=== PATIENT | male | born 1980 | race Caucasian/White ===

== ENCOUNTER 2016-07-25 13:54 | Emergency (ER) | payer OTHER ==
[~2016-07-25] VITALS: Wt 93.0 kg
[~2016-07-25 13:54] MED LIST: AMOXICILLIN500 M2 PO; AMOXICILLIN500 MG PO; ANTIPYRINE AND15 ML OT; BACTRIM DS 8001 TA1 PO; BENADRYL25 M2 PO; CEPHALEXIN500 M1 PO; DEBROX15 ML OT; DOXYCYCLINE100 MG PO; EXCEDRIN 250 MG1 TA1 PO; FLOMAX0.4 MG PO; HYDROCODONE BIT1 T11 PO; KEFLEX500 MG PO; MOTRIN800 MG PO; Motrin,Rufen800 MG PO; NAPROSYN500 MG PO; PERCOCET 325 MG1 TA7 PO; PHENERGAN W/ DE30 ML PO; PREDNICOT10 MG PO; PREDNISONE20 M1 PO; PROAIR HFA0.09 MG/AC INH; ZOFRAN ODT4 MG SL; ZYRTEC10 MG PO
[2016-07-25 14:29] LABS: BASO % 0.4 % (0.0-1.0); EOS # 0.1 10*3/uL (0.0-0.4); EOS % 1.3 % (1.0-4.0); HEMATOCRIT 42.2 % (42.0-52.0); HEMOGLOBIN 14.3 g/dl (14.0-18.0); LYMPH # 0.9 10*3/uL (1.3-4.4); MEAN CELL VOLUME 85.9 fl (80.0-94.0); MEAN CORPUSCULAR HGB 29.1 pg (27.0-31.0); MEAN CORPUSCULAR HGB CONC 33.9 g/dl (33.0-37.0); MEAN PLATELET VOLUME 9.2 fl (9.6-12.3); MONO # 0.6 10*3/uL (0.1-1.0); MONO % 12.3 % (3.0-9.0); NEUT # 3.2 10*3/uL (2.3-7.9); NEUT % 66.6 % (47.0-73.0); PLATELET COUNT AUTOMATED 176 10*3/uL (130-400); RED BLOOD COUNT 4.91 10*6/uL (4.50-5.90); WHITE BLOOD COUNT 4.8 10*3/uL (4.8-10.8)
[2016-07-25 14:45] LABS: ALBUMIN 3.7 gm/dl (3.1-4.5); ALKALINE PHOSPHATASE 81 U/L (45-117); BILIRUBIN, TOTAL 0.3 mg/dl (0.2-1.0); BUN 8 mg/dl (7-24); C-REACTIVE PROTEIN 2.42 MG/DL (0-0.3); CARBON DIOXIDE 26 mmol/L (21-32); CHLORIDE 105 mmol/L (98-107); EST GLOM FILT AFRICAN AMERICAN > 60 ml/min; GLUCOSE 76 mg/dL (65-99); POTASSIUM 3.8 mmol/L (3.5-5.1); SGOT/AST 21 IU/L (3-35); SGPT/ALT 32 U/L (12-78); SODIUM 141 mmol/L (136-145); TOTAL PROTEIN 7.8 gm/dL (6.4-8.2)
[2016-07-25] MEDS ORDERED: ZOFRAN ODT4 MG SL (17:09)
[2016-07-25] MEDS ORDERED: Motrin,Rufen800 MG PO (17:09)
== END 2016-07-25 17:19 | disposition home or self-care (01) ==
LOC: ED 13:54
PROVIDERS: Physician Assistant
DX: K52.9 Noninfective gastroenteritis and colitis, unspecified (principal); M54.5 Low back pain; F17.200 Nicotine dependence, unspecified, uncomplicated

== ENCOUNTER 2016-07-30 17:15 | Emergency (ER) | payer OTHER ==
[~2016-07-30] VITALS: Wt 93.0 kg
[2016-07-30 17:55] LABS: MEAN CELL VOLUME 85.4 fl (80.0-94.0); MEAN CORPUSCULAR HGB 29.2 pg (27.0-31.0); MEAN CORPUSCULAR HGB CONC 34.1 g/dl (33.0-37.0); MEAN PLATELET VOLUME 9.3 fl (9.6-12.3); PLATELET COUNT AUTOMATED 174 10*3/uL (130-400); RED CELL DISTRI WIDTH 12.7 % (0-14.5); WHITE BLOOD COUNT 5.3 10*3/uL (4.8-10.8)
[2016-07-30 18:09] LABS: ALBUMIN 3.5 gm/dl (3.1-4.5); ALKALINE PHOSPHATASE 73 U/L (45-117); BILIRUBIN, TOTAL 0.4 mg/dl (0.2-1.0); BUN 11 mg/dl (7-24); CARBON DIOXIDE 27 mmol/L (21-32); CHLORIDE 107 mmol/L (98-107); EST GLOM FILT AFRICAN AMERICAN > 60 ml/min; GLUCOSE 105 mg/dL (65-99); POTASSIUM 3.4 mmol/L (3.5-5.1); SGOT/AST 26 IU/L (3-35); SGPT/ALT 42 U/L (12-78); SODIUM 143 mmol/L (136-145); TOTAL PROTEIN 7.6 gm/dL (6.4-8.2)
[2016-07-30 18:17] LABS: EOSINOPHIL # 0.1 10*3/uL (0-0.4); EOSINOPHILS 2 % (1-4); LYMPHOCYTE # 1.7 10*3/uL (1.3-4.4); MONOCYTE # 0.2 10*3/uL (0.1-1.0); NEUTROPHIL # 3.3 10*3/uL (2.3-7.9); NEUTROPHILS 63 % (47-73); PLATELET SUFFICIENCY NORMAL (NORMAL); TOTAL CELLS COUNTED 100 #CELLS
== END 2016-07-30 18:16 | disposition left against medical advice (07) ==
LOC: ED 17:15
PROVIDERS: Physician Assistant
DX: R11.2 Nausea with vomiting, unspecified (principal); F17.200 Nicotine dependence, unspecified, uncomplicated

== ENCOUNTER 2016-08-06 20:49 | Emergency (ER) | payer OTHER ==
[~2016-08-06] VITALS: Ht 175.2 cm; Wt 88.5 kg
== END 2016-08-06 21:22 | disposition home or self-care (01) ==
LOC: ED 20:49
DX: S05.01XA Injury of conjunctiva and corneal abrasion without foreign body, right eye, initial encounter (principal); F17.200 Nicotine dependence, unspecified, uncomplicated; X58.XXXA Exposure to other specified factors, initial encounter; Y93.89 Activity, other specified; Y92.89 Other specified places as the place of occurrence of the external cause; Y99.9 Unspecified external cause status

== ENCOUNTER 2016-08-31 08:44 | Emergency (ER) | payer OTHER ==
[~2016-08-31] VITALS: Ht 175.2 cm; Wt 88.5 kg
[2016-08-31] MEDS ORDERED: NAPROSYN500 MG PO (09:10)
== END 2016-08-31 09:34 | disposition home or self-care (01) ==
LOC: ED 08:44
DX: M25.441 Effusion, right hand (principal); M25.442 Effusion, left hand; F17.200 Nicotine dependence, unspecified, uncomplicated

== ENCOUNTER 2016-09-17 22:22 | Emergency (ER) | payer OTHER ==
[~2016-09-17] VITALS: Ht 175.2 cm; Wt 88.5 kg
[2016-09-17] MEDS ORDERED: BACTRIM DS 8001 TA1 PO (22:47)
[2016-09-17] MEDS ORDERED: KEFLEX500 M1 PO (22:47)
== END 2016-09-17 22:45 | disposition home or self-care (01) ==
LOC: ED 22:22
DX: L02.214 Cutaneous abscess of groin (principal); F17.200 Nicotine dependence, unspecified, uncomplicated

== ENCOUNTER 2016-10-11 11:18 | Emergency (ER) | payer OTHER ==
[~2016-10-11] VITALS: Ht 175.2 cm; Wt 88.5 kg
[~2016-10-11 11:18] MED LIST changes: +KEFLEX500 M1 PO
[2016-10-11 12:41] LABS: BASO % 0.3 % (0.0-1.0); EOS # 0.1 10*3/uL (0.0-0.4); EOS % 1.3 % (1.0-4.0); HEMATOCRIT 43.9 % (42.0-52.0); HEMOGLOBIN 14.9 g/dl (14.0-18.0); LYMPH # 1.5 10*3/uL (1.3-4.4); LYMPH % 16.2 % (27.0-41.0); MEAN CELL VOLUME 86.4 fl (80.0-94.0); MEAN CORPUSCULAR HGB 29.3 pg (27.0-31.0); MEAN CORPUSCULAR HGB CONC 33.9 g/dl (33.0-37.0); MEAN PLATELET VOLUME 9.2 fl (9.6-12.3); MONO # 0.6 10*3/uL (0.1-1.0); PLATELET COUNT AUTOMATED 217 10*3/uL (130-400); RED BLOOD COUNT 5.08 10*6/uL (4.50-5.90); RED CELL DISTRI WIDTH 13.1 % (0-14.5); WHITE BLOOD COUNT 9.2 10*3/uL (4.8-10.8)
[2016-10-11 12:44] LABS: ALBUMIN 3.7 gm/dl (3.1-4.5); ALKALINE PHOSPHATASE 89 U/L (45-117); BILIRUBIN, TOTAL 0.4 mg/dl (0.2-1.0); BUN 8 mg/dl (7-24); CARBON DIOXIDE 27 mmol/L (21-32); CHLORIDE 105 mmol/L (98-107); EST GLOM FILT AFRICAN AMERICAN > 60 ml/min; GLUCOSE 100 mg/dL (65-99); POTASSIUM 3.7 mmol/L (3.5-5.1); SGOT/AST 21 IU/L (3-35); SGPT/ALT 33 U/L (12-78); SODIUM 141 mmol/L (136-145); TOTAL PROTEIN 7.7 gm/dL (6.4-8.2)
[2016-10-11 12:45] LABS: BILIRUBIN NEGATIVE (NEGATIVE); BLOOD 3+ (NEGATIVE); CLARITY CLOUDY (CLEAR); COLOR YELLOW (YELLOW); GLUCOSE NEGATIVE (NEGATIVE); KETONE NEGATIVE (NEGATIVE); LEUKO ESTERASE TRACE (NEGATIVE); NITRITE NEGATIVE (NEGATIVE); PROTEIN 1+ (NEGATIVE)
[2016-10-11 13:02] LABS: RBC TNTC rbc/hpf (0-2)
[2016-10-11 13:03] LABS: BACTERIA 2+; URINE REFLEX COMMENT YES (NO)
[2016-10-11] MEDS ORDERED: PERCOCET 325 MG1 TA2 PO (15:27)
[2016-10-11] MEDS ORDERED: AMINOPHYLLIN200 MG PO (15:27)
[2016-10-11] MEDS ORDERED: ZOFRAN ODT4 MG SL (15:27)
[2016-10-11] MEDS ORDERED: FLOMAX0.4 MG PO (15:27)
== END 2016-10-11 15:30 | disposition home or self-care (01) ==
LOC: ED 11:18
PROVIDERS: Registered Nurse
DX: N20.0 Calculus of kidney (principal); N13.30 Unspecified hydronephrosis; M19.90 Unspecified osteoarthritis, unspecified site; F17.200 Nicotine dependence, unspecified, uncomplicated

== ENCOUNTER 2016-10-16 12:03 | Emergency (ER) | payer OTHER ==
[~2016-10-16] VITALS: Wt 88.5 kg
[~2016-10-16 12:03] MED LIST changes: +AMINOPHYLLIN200 MG PO; +PERCOCET 325 MG1 TA2 PO
[2016-10-16] MEDS ORDERED: OXYCODONE AND A1 TAB PO (12:12)
[2016-10-16 12:27] LABS: BASO % 0.5 % (0.0-1.0); EOS # 0.3 10*3/uL (0.0-0.4); EOS % 3.4 % (1.0-4.0); HEMATOCRIT 41.1 % (42.0-52.0); HEMOGLOBIN 13.9 g/dl (14.0-18.0); LYMPH % 22.7 % (27.0-41.0); MEAN CORPUSCULAR HGB 29.1 pg (27.0-31.0); MEAN CORPUSCULAR HGB CONC 33.8 g/dl (33.0-37.0); MEAN PLATELET VOLUME 9.1 fl (9.6-12.3); MONO # 0.6 10*3/uL (0.1-1.0); MONO % 6.4 % (3.0-9.0); NEUT # 5.8 10*3/uL (2.3-7.9); NEUT % 66.8 % (47.0-73.0); PLATELET COUNT AUTOMATED 219 10*3/uL (130-400); RED BLOOD COUNT 4.78 10*6/uL (4.50-5.90); RED CELL DISTRI WIDTH 13.1 % (0-14.5); WHITE BLOOD COUNT 8.7 10*3/uL (4.8-10.8)
[2016-10-16 12:33] LABS: BILIRUBIN 1+ (NEGATIVE); BLOOD 3+ (NEGATIVE); CLARITY CLOUDY (CLEAR); COLOR RED (YELLOW); GLUCOSE NEGATIVE (NEGATIVE); KETONE NEGATIVE (NEGATIVE); LEUKO ESTERASE 1+ (NEGATIVE); NITRITE NEGATIVE (NEGATIVE); PROTEIN 2+ (NEGATIVE)
[2016-10-16 12:44] LABS: ALBUMIN 3.6 gm/dl (3.1-4.5); ALKALINE PHOSPHATASE 75 U/L (45-117); BILIRUBIN, TOTAL 0.4 mg/dl (0.2-1.0); BUN 15 mg/dl (7-24); CARBON DIOXIDE 27 mmol/L (21-32); CHLORIDE 105 mmol/L (98-107); EST GLOM FILT AFRICAN AMERICAN > 60 ml/min; GLUCOSE 101 mg/dL (65-99); POTASSIUM 3.7 mmol/L (3.5-5.1); SGOT/AST 14 IU/L (3-35); SGPT/ALT 15 U/L (12-78); SODIUM 144 mmol/L (136-145); TOTAL PROTEIN 7.3 gm/dL (6.4-8.2)
[2016-10-16 12:48] LABS: RBC TNTC rbc/hpf (0-2); URINE REFLEX COMMENT YES (NO); WBC TNTC wbc/hpf (0-5)
[2016-10-16] MEDS ORDERED: HYDROCODONE BIT1 T11 PO (12:55)
== END 2016-10-16 14:57 | disposition home or self-care (01) ==
LOC: ED 12:03
PROVIDERS: Physician Assistant
DX: N23 Unspecified renal colic (principal); F17.200 Nicotine dependence, unspecified, uncomplicated; Z79.899 Other long term (current) drug therapy

== ENCOUNTER → 2016-10-29 | Outpatient (CLI) | payer OTHER ==
[~2016-10-29] MED LIST changes: +OXYCODONE AND A1 TAB PO
== END | disposition home or self-care (01) ==
LOC: RAD 12:03
DX: N20.2 Calculus of kidney with calculus of ureter (principal); Z96.0 Presence of urogenital implants

== ENCOUNTER 2016-11-25 19:38 | Emergency (ER) | payer OTHER ==
[~2016-11-25] VITALS: Ht 175.2 cm; Wt 88.5 kg
[2016-11-25 20:28] LABS: BASO % 0.4 % (0.0-1.0); EOS # 0.3 10*3/uL (0.0-0.4); EOS % 3.8 % (1.0-4.0); HEMATOCRIT 43.8 % (42.0-52.0); HEMOGLOBIN 14.8 g/dl (14.0-18.0); LYMPH # 2.4 10*3/uL (1.3-4.4); LYMPH % 30.8 % (27.0-41.0); MEAN CELL VOLUME 85.2 fl (80.0-94.0); MEAN CORPUSCULAR HGB 28.8 pg (27.0-31.0); MEAN CORPUSCULAR HGB CONC 33.8 g/dl (33.0-37.0); MEAN PLATELET VOLUME 9.3 fl (9.6-12.3); MONO # 0.5 10*3/uL (0.1-1.0); MONO % 6.4 % (3.0-9.0); NEUT # 4.5 10*3/uL (2.3-7.9); NEUT % 58.3 % (47.0-73.0); PLATELET COUNT AUTOMATED 241 10*3/uL (130-400); RED BLOOD COUNT 5.14 10*6/uL (4.50-5.90); RED CELL DISTRI WIDTH 13.2 % (0-14.5); WHITE BLOOD COUNT 7.6 10*3/uL (4.8-10.8)
[2016-11-25 20:43] LABS: ALBUMIN 3.9 gm/dl (3.1-4.5); ALKALINE PHOSPHATASE 98 U/L (45-117); BILIRUBIN, TOTAL 0.5 mg/dl (0.2-1.0); BUN 12 mg/dl (7-24); CARBON DIOXIDE 28 mmol/L (21-32); CHLORIDE 104 mmol/L (98-107); EST GLOM FILT AFRICAN AMERICAN > 60 ml/min; GLUCOSE 84 mg/dL (65-99); POTASSIUM 3.3 mmol/L (3.5-5.1); SGOT/AST 20 IU/L (3-35); SGPT/ALT 28 U/L (12-78); SODIUM 141 mmol/L (136-145); TOTAL PROTEIN 8.1 gm/dL (6.4-8.2)
[2016-11-25 20:58] LABS: BILIRUBIN 1+ (NEGATIVE); BLOOD 3+ (NEGATIVE); CLARITY SL CLOUDY (CLEAR); COLOR YELLOW (YELLOW); GLUCOSE NEGATIVE (NEGATIVE); KETONE TRACE (NEGATIVE); LEUKO ESTERASE 2+ (NEGATIVE); NITRITE NEGATIVE (NEGATIVE); PH 5.5 (5.0-9.0); PROTEIN 2+ (NEGATIVE); SPECIFIC GRAVITY >= 1.030 (1.005-1.030)
[2016-11-25 21:05] LABS: BACTERIA 1+; RBC TNTC rbc/hpf (0-2)
[2016-11-25 21:06] LABS: URINE REFLEX COMMENT YES (NO); WBC 21-30 wbc/hpf (0-5)
[2016-11-25] MEDS ORDERED: LEVOFLOXACIN500 MG PO ×2 (21:12→21:13)
[2016-11-25] MEDS ORDERED: ANUSOL-HC25 MG R (21:26)
== END 2016-11-25 21:59 | disposition home or self-care (01) ==
LOC: ED 19:38
PROVIDERS: Nurse Practitioner Family
DX: N39.0 Urinary tract infection, site not specified (principal); R31.9 Hematuria, unspecified; F17.200 Nicotine dependence, unspecified, uncomplicated

== ENCOUNTER 2016-11-29 02:03 | Emergency (ER) | payer OTHER ==
[~2016-11-29] VITALS: Ht 175.2 cm; Wt 88.5 kg
[~2016-11-29 02:03] MED LIST changes: +ANUSOL-HC25 MG R; +LEVOFLOXACIN500 MG PO
[2016-11-29] MEDS ORDERED: NORCO 5-325 TA1 EACH PO (02:44)
== END 2016-11-29 03:16 | disposition home or self-care (01) ==
LOC: ED 02:03
DX: N20.0 Calculus of kidney (principal); K62.89 Other specified diseases of anus and rectum; Z79.899 Other long term (current) drug therapy; Z93.6 Other artificial openings of urinary tract status

== ENCOUNTER 2016-12-11 08:44 | Emergency (ER) | payer OTHER ==
[~2016-12-11] VITALS: Ht 175.2 cm; Wt 88.5 kg
[~2016-12-11 08:44] MED LIST changes: +NORCO 5-325 TA1 EACH PO
[2016-12-11 09:05] LABS: BASO % 0.4 % (0.0-1.0); EOS # 0.3 10*3/uL (0.0-0.4); HEMATOCRIT 40.9 % (42.0-52.0); HEMOGLOBIN 14.1 g/dl (14.0-18.0); LYMPH # 2.4 10*3/uL (1.3-4.4); LYMPH % 25.1 % (27.0-41.0); MEAN CELL VOLUME 85.6 fl (80.0-94.0); MEAN CORPUSCULAR HGB 29.5 pg (27.0-31.0); MEAN CORPUSCULAR HGB CONC 34.5 g/dl (33.0-37.0); MEAN PLATELET VOLUME 9.2 fl (9.6-12.3); MONO # 0.5 10*3/uL (0.1-1.0); MONO % 5.7 % (3.0-9.0); NEUT # 6.2 10*3/uL (2.3-7.9); NEUT % 65.6 % (47.0-73.0); PLATELET COUNT AUTOMATED 231 10*3/uL (130-400); RED BLOOD COUNT 4.78 10*6/uL (4.50-5.90); RED CELL DISTRI WIDTH 13.1 % (0-14.5); WHITE BLOOD COUNT 9.4 10*3/uL (4.8-10.8)
[2016-12-11 09:16] LABS: BUN 20 mg/dl (7-24); CARBON DIOXIDE 25 mmol/L (21-32); CHLORIDE 105 mmol/L (98-107); EST GLOM FILT AFRICAN AMERICAN > 60 ml/min; GLUCOSE 96 mg/dL (65-99); POTASSIUM 3.9 mmol/L (3.5-5.1); SODIUM 137 mmol/L (136-145)
[2016-12-11 09:57] LABS: BILIRUBIN NEGATIVE (NEGATIVE); BLOOD TRACE-INTACT (NEGATIVE); CLARITY SL CLOUDY (CLEAR); COLOR YELLOW (YELLOW); GLUCOSE NEGATIVE (NEGATIVE); KETONE TRACE (NEGATIVE); LEUKO ESTERASE NEGATIVE (NEGATIVE); NITRITE NEGATIVE (NEGATIVE); PROTEIN NEGATIVE (NEGATIVE); SPECIFIC GRAVITY 1.015 (1.005-1.030)
[2016-12-11 10:03] LABS: BACTERIA TRACE; URINE REFLEX COMMENT NO (NO)
[2016-12-11] MEDS ORDERED: NORCO 5-325 TA1 EACH PO (10:09)
[2016-12-11] MEDS ORDERED: Zofran4 MG PO (10:09)
== END 2016-12-11 10:41 | disposition home or self-care (01) ==
LOC: ED 08:44
PROVIDERS: Emergency Medicine
DX: N23 Unspecified renal colic (principal); R79.89 Other specified abnormal findings of blood chemistry; Z79.899 Other long term (current) drug therapy

== ENCOUNTER 2016-12-13 07:37 | Emergency (ER) | payer OTHER ==
[~2016-12-13] VITALS: Ht 175.2 cm; Wt 88.5 kg
[~2016-12-13 07:37] MED LIST changes: +Zofran4 MG PO
[2016-12-13 08:20] LABS: BASO % 0.4 % (0.0-1.0); EOS # 0.3 10*3/uL (0.0-0.4); EOS % 3.4 % (1.0-4.0); HEMATOCRIT 39.2 % (42.0-52.0); HEMOGLOBIN 13.1 g/dl (14.0-18.0); LYMPH # 2.1 10*3/uL (1.3-4.4); LYMPH % 25.4 % (27.0-41.0); MEAN CELL VOLUME 87.1 fl (80.0-94.0); MEAN CORPUSCULAR HGB 29.1 pg (27.0-31.0); MEAN CORPUSCULAR HGB CONC 33.4 g/dl (33.0-37.0); MEAN PLATELET VOLUME 9.1 fl (9.6-12.3); MONO # 0.6 10*3/uL (0.1-1.0); MONO % 7.2 % (3.0-9.0); NEUT # 5.2 10*3/uL (2.3-7.9); NEUT % 63.5 % (47.0-73.0); PLATELET COUNT AUTOMATED 221 10*3/uL (130-400); RED CELL DISTRI WIDTH 13.3 % (0-14.5); WHITE BLOOD COUNT 8.2 10*3/uL (4.8-10.8)
[2016-12-13 08:35] LABS: ALBUMIN 3.2 gm/dl (3.1-4.5); ALKALINE PHOSPHATASE 78 U/L (45-117); BILIRUBIN, TOTAL 0.3 mg/dl (0.2-1.0); BUN 14 mg/dl (7-24); CARBON DIOXIDE 27 mmol/L (21-32); CHLORIDE 104 mmol/L (98-107); EST GLOM FILT AFRICAN AMERICAN > 60 ml/min; GLUCOSE 89 mg/dL (65-99); SGOT/AST 17 IU/L (3-35); SGPT/ALT 17 U/L (12-78); SODIUM 138 mmol/L (136-145); TOTAL PROTEIN 7.2 gm/dL (6.4-8.2)
== END 2016-12-13 08:55 | disposition home or self-care (01) ==
LOC: ED 07:37
PROVIDERS: Emergency Medicine
DX: N20.1 Calculus of ureter (principal); N23 Unspecified renal colic; F17.200 Nicotine dependence, unspecified, uncomplicated; Z79.899 Other long term (current) drug therapy

== ENCOUNTER 2017-02-04 20:01 | Emergency (ER) | payer OTHER ==
[~2017-02-04] VITALS: Ht 175.2 cm; Wt 90.7 kg
[2017-02-04 21:08] LABS: BASO % 0.4 % (0.0-1.0); EOS # 0.3 10*3/uL (0.0-0.4); EOS % 2.4 % (1.0-4.0); HEMATOCRIT 41.8 % (42.0-52.0); HEMOGLOBIN 14.1 g/dl (14.0-18.0); LYMPH # 2.4 10*3/uL (1.3-4.4); LYMPH % 23.3 % (27.0-41.0); MEAN CELL VOLUME 86.4 fl (80.0-94.0); MEAN CORPUSCULAR HGB 29.1 pg (27.0-31.0); MEAN CORPUSCULAR HGB CONC 33.7 g/dl (33.0-37.0); MEAN PLATELET VOLUME 9.4 fl (9.6-12.3); MONO # 0.7 10*3/uL (0.1-1.0); MONO % 7.1 % (3.0-9.0); NEUT # 6.9 10*3/uL (2.3-7.9); NEUT % 66.6 % (47.0-73.0); PLATELET COUNT AUTOMATED 233 10*3/uL (130-400); RED BLOOD COUNT 4.84 10*6/uL (4.50-5.90); RED CELL DISTRI WIDTH 13.2 % (0-14.5); WHITE BLOOD COUNT 10.3 10*3/uL (4.8-10.8)
[2017-02-04 21:21] LABS: BUN 14 mg/dl (7-24); CHLORIDE 106 mmol/L (98-107); CREATININE 1.15 mg/dL (0.70-1.30); POTASSIUM 3.2 mmol/L (3.5-5.1); SODIUM 139 mmol/L (136-145); URIC ACID 4.2 mg/dL (3.5-7.2)
[2017-02-04] MEDS ORDERED: SEPTDS PO (21:34)
[2017-02-04] MEDS ORDERED: Motrin,Rufen800 MG PO (21:34)
[2017-02-04] MEDS ORDERED: KEFLEX500 M1 PO (21:34)
== END 2017-02-04 21:48 | disposition home or self-care (01) ==
LOC: ED 20:01
PROVIDERS: Emergency Medicine Emergency Medical Services
DX: L03.115 Cellulitis of right lower limb (principal); F17.200 Nicotine dependence, unspecified, uncomplicated; Z87.442 Personal history of urinary calculi; Z79.899 Other long term (current) drug therapy

== ENCOUNTER 2017-02-09 00:51 | Emergency (ER) | payer OTHER ==
[~2017-02-09] VITALS: Ht 175.2 cm; Wt 86.2 kg
[~2017-02-09 00:51] MED LIST changes: +SEPTDS PO
[2017-02-09] MEDS ORDERED: DOXYCYCLINE100 M3 PO (01:23)
== END 2017-02-09 02:02 | disposition home or self-care (01) ==
LOC: ED 00:51
DX: L03.115 Cellulitis of right lower limb (principal); F17.200 Nicotine dependence, unspecified, uncomplicated

== ENCOUNTER 2017-03-19 21:11 | Emergency (ER) | payer OTHER ==
[~2017-03-19] VITALS: Ht 175.2 cm; Wt 88.5 kg
[~2017-03-19 21:11] MED LIST changes: +DOXYCYCLINE100 M3 PO
[2017-03-19] MEDS ORDERED: PROAIR HFA8.5 GM INH (21:32)
[2017-03-19] MEDS ORDERED: ROBITUSSIN DM 105 ML PO (21:32)
== END 2017-03-19 21:35 | disposition home or self-care (01) ==
LOC: ED 21:11
DX: J06.9 Acute upper respiratory infection, unspecified (principal); F17.200 Nicotine dependence, unspecified, uncomplicated

== ENCOUNTER 2017-04-01 21:04 | Emergency (ER) | payer SELFPAY ==
[~2017-04-01] VITALS: Ht 175.2 cm; Wt 88.5 kg
[~2017-04-01 21:04] MED LIST changes: +PROAIR HFA8.5 GM INH; +ROBITUSSIN DM 105 ML PO
[2017-04-01] MEDS ORDERED: ZOFRAN ODT4 MG SL (21:55)
== END 2017-04-01 21:57 | disposition home or self-care (01) ==
LOC: ED 21:04
DX: K52.9 Noninfective gastroenteritis and colitis, unspecified (principal); F17.200 Nicotine dependence, unspecified, uncomplicated

== ENCOUNTER 2017-04-14 19:13 | Emergency (ER) | payer OTHER ==
[~2017-04-14] VITALS: Ht 175.2 cm; Wt 88.5 kg
[2017-04-14] MEDS ORDERED: CYCLOBENZAPRINE10 MG PO (19:38)
== END 2017-04-14 19:41 | disposition home or self-care (01) ==
LOC: ED 19:13
DX: S39.012A Strain of muscle, fascia and tendon of lower back, initial encounter (principal); F17.200 Nicotine dependence, unspecified, uncomplicated; R19.7 Diarrhea, unspecified; W01.0XXA Fall on same level from slipping, tripping and stumbling without subsequent striking against object, initial encounter; Y93.89 Activity, other specified; Y92.89 Other specified places as the place of occurrence of the external cause; Y99.8 Other external cause status

== ENCOUNTER 2017-09-06 13:51 | Emergency (ER) | payer OTHER ==
[~2017-09-06] VITALS: Ht 175.2 cm; Wt 88.5 kg
[~2017-09-06 13:51] MED LIST changes: +CYCLOBENZAPRINE10 MG PO
[2017-09-06 14:11] LABS: BASO % 0.5 % (0.0-1.0); EOS # 0.3 10*3/uL (0.0-0.4); EOS % 3.2 % (1.0-4.0); HEMATOCRIT 43.2 % (42.0-52.0); HEMOGLOBIN 14.7 g/dl (14.0-18.0); LYMPH # 2.8 10*3/uL (1.3-4.4); LYMPH % 35.5 % (27.0-41.0); MEAN CELL VOLUME 86.4 fl (80.0-94.0); MEAN CORPUSCULAR HGB 29.4 pg (27.0-31.0); MEAN PLATELET VOLUME 8.8 fl (9.6-12.3); MONO # 0.6 10*3/uL (0.1-1.0); MONO % 7.2 % (3.0-9.0); NEUT # 4.2 10*3/uL (2.3-7.9); NEUT % 53.5 % (47.0-73.0); PLATELET COUNT AUTOMATED 228 10*3/uL (130-400); RED CELL DISTRI WIDTH 12.8 % (0-14.5); WHITE BLOOD COUNT 7.8 10*3/uL (4.8-10.8)
[2017-09-06 14:26] LABS: ALBUMIN 3.7 gm/dl (3.1-4.5); ALKALINE PHOSPHATASE 90 U/L (45-117); BUN 10 mg/dl (7-24); CHLORIDE 105 mmol/L (98-107); CREATININE 0.92 mg/dL (0.70-1.30); POTASSIUM 3.5 mmol/L (3.5-5.1); SGOT/AST 12 IU/L (3-35); SGPT/ALT 17 U/L (12-78); SODIUM 138 mmol/L (136-145); TOTAL PROTEIN 7.7 gm/dL (6.4-8.2)
[2017-09-06 14:37] LABS: BILIRUBIN NEGATIVE (NEGATIVE); BLOOD NEGATIVE (NEGATIVE); CLARITY CLEAR (CLEAR); COLOR YELLOW (YELLOW); GLUCOSE NEGATIVE (NEGATIVE); KETONE TRACE (NEGATIVE); LEUKO ESTERASE TRACE (NEGATIVE); NITRITE NEGATIVE (NEGATIVE)
[2017-09-06 14:46] LABS: RBC 0-2 rbc/hpf (0-2)
[2017-09-06 14:47] LABS: BACTERIA TRACE
== END 2017-09-06 15:41 | disposition home or self-care (01) ==
LOC: ED 13:51
PROVIDERS: Nurse Practitioner Family
DX: S63.501A Unspecified sprain of right wrist, initial encounter (principal); G89.29 Other chronic pain; R10.30 Lower abdominal pain, unspecified; Z87.442 Personal history of urinary calculi; X58.XXXA Exposure to other specified factors, initial encounter; Y93.89 Activity, other specified; Y92.89 Other specified places as the place of occurrence of the external cause; Y99.8 Other external cause status

== ENCOUNTER 2017-10-15 20:42 | Emergency (ER) | payer OTHER ==
[~2017-10-15] VITALS: Wt 86.2 kg
[2017-10-15 21:09] LABS: BILIRUBIN 1+ (NEGATIVE); BLOOD 3+ (NEGATIVE); CLARITY CLOUDY (CLEAR); COLOR YELLOW (YELLOW); GLUCOSE NEGATIVE (NEGATIVE); KETONE NEGATIVE (NEGATIVE); LEUKO ESTERASE NEGATIVE (NEGATIVE); NITRITE NEGATIVE (NEGATIVE); PH 6.5 (5.0-9.0); SPECIFIC GRAVITY >= 1.030 (1.005-1.030)
[2017-10-15 21:18] LABS: RBC TNTC rbc/hpf (0-2)
[2017-10-15 21:43] LABS: BASO % 0.4 % (0.0-1.0); EOS # 0.3 10*3/uL (0.0-0.4); EOS % 3.4 % (1.0-4.0); HEMATOCRIT 40.4 % (42.0-52.0); HEMOGLOBIN 13.6 g/dl (14.0-18.0); LYMPH # 2.3 10*3/uL (1.3-4.4); LYMPH % 29.9 % (27.0-41.0); MEAN CELL VOLUME 87.1 fl (80.0-94.0); MEAN CORPUSCULAR HGB 29.3 pg (27.0-31.0); MEAN CORPUSCULAR HGB CONC 33.7 g/dl (33.0-37.0); MEAN PLATELET VOLUME 9.2 fl (9.6-12.3); MONO # 0.5 10*3/uL (0.1-1.0); MONO % 6.6 % (3.0-9.0); NEUT # 4.7 10*3/uL (2.3-7.9); NEUT % 59.4 % (47.0-73.0); PLATELET COUNT AUTOMATED 203 10*3/uL (130-400); RED BLOOD COUNT 4.64 10*6/uL (4.50-5.90); RED CELL DISTRI WIDTH 12.9 % (0-14.5); WHITE BLOOD COUNT 7.8 10*3/uL (4.8-10.8)
[2017-10-15 21:58] LABS: ALBUMIN 3.5 gm/dl (3.1-4.5); ALKALINE PHOSPHATASE 90 U/L (45-117); BUN 11 mg/dl (7-24); CHLORIDE 109 mmol/L (98-107); CREATININE 0.83 mg/dL (0.70-1.30); POTASSIUM 3.2 mmol/L (3.5-5.1); SGOT/AST 10 IU/L (3-35); SGPT/ALT 19 U/L (12-78); SODIUM 142 mmol/L (136-145); TOTAL PROTEIN 6.9 gm/dL (6.4-8.2)
[2017-10-15] MEDS ORDERED: ZOFRAN ODT4 MG SL (22:06)
== END 2017-10-15 22:20 | disposition home or self-care (01) ==
LOC: ED 20:42
PROVIDERS: Physician Assistant
DX: N20.0 Calculus of kidney (principal); F17.200 Nicotine dependence, unspecified, uncomplicated; Z87.442 Personal history of urinary calculi

== ENCOUNTER 2017-10-19 08:30 | Emergency (ER) | payer OTHER ==
[~2017-10-19] VITALS: Ht 175.2 cm; Wt 88.5 kg
[2017-10-19 09:06] LABS: BASO % 0.3 % (0.0-1.0); EOS # 0.2 10*3/uL (0.0-0.4); HEMOGLOBIN 14.7 g/dl (14.0-18.0); LYMPH # 1.9 10*3/uL (1.3-4.4); MEAN CORPUSCULAR HGB 29.1 pg (27.0-31.0); MEAN CORPUSCULAR HGB CONC 33.4 g/dl (33.0-37.0); MEAN PLATELET VOLUME 9.3 fl (9.6-12.3); MONO # 0.6 10*3/uL (0.1-1.0); MONO % 4.9 % (3.0-9.0); NEUT # 8.6 10*3/uL (2.3-7.9); NEUT % 75.5 % (47.0-73.0); PLATELET COUNT AUTOMATED 220 10*3/uL (130-400); RED BLOOD COUNT 5.06 10*6/uL (4.50-5.90); WHITE BLOOD COUNT 11.3 10*3/uL (4.8-10.8)
[2017-10-19 09:22] LABS: ALBUMIN 3.8 gm/dl (3.1-4.5); ALKALINE PHOSPHATASE 95 U/L (45-117); BUN 13 mg/dl (7-24); CHLORIDE 106 mmol/L (98-107); CREATININE 1.11 mg/dL (0.70-1.30); LIPASE 95 U/L (73-393); POTASSIUM 3.7 mmol/L (3.5-5.1); SGOT/AST 13 IU/L (3-35); SGPT/ALT 18 U/L (12-78); SODIUM 140 mmol/L (136-145); TOTAL PROTEIN 7.7 gm/dL (6.4-8.2)
[2017-10-19 09:27] LABS: BILIRUBIN 1+ (NEGATIVE); BLOOD 3+ (NEGATIVE); CLARITY TURBID (CLEAR); GLUCOSE NEGATIVE (NEGATIVE); KETONE NEGATIVE (NEGATIVE); LEUKO ESTERASE TRACE (NEGATIVE); NITRITE POSITIVE (NEGATIVE); PH 6.5 (5.0-9.0); SPECIFIC GRAVITY >= 1.030 (1.005-1.030)
[2017-10-19 09:37] LABS: BACTERIA 4+; COLOR RED (YELLOW); RBC TNTC rbc/hpf (0-2)
[2017-10-19] MEDS ORDERED: IBU400 M1 PO (10:52)
[2017-10-19] MEDS ORDERED: FLOMAX0.4 MG PO (10:52)
[2017-10-19] MEDS ORDERED: MACROBID100 M1 PO (10:52)
== END 2017-10-19 11:19 | disposition home or self-care (01) ==
LOC: ED 08:30
PROVIDERS: Emergency Medicine
DX: N20.0 Calculus of kidney (principal); R10.31 Right lower quadrant pain; G89.29 Other chronic pain; Z79.899 Other long term (current) drug therapy; Z98.84 Bariatric surgery status

== ENCOUNTER 2017-10-20 21:25 | Emergency (ER) | payer OTHER ==
[~2017-10-20] VITALS: Ht 175.2 cm; Wt 88.5 kg
[~2017-10-20 21:25] MED LIST changes: +IBU400 M1 PO; +MACROBID100 M1 PO
== END 2017-10-20 21:59 | disposition left against medical advice (07) ==
LOC: ED 21:25
DX: N13.8 Other obstructive and reflux uropathy (principal); N20.0 Calculus of kidney; G89.29 Other chronic pain; Z79.899 Other long term (current) drug therapy

== ENCOUNTER 2017-11-23 13:27 | Emergency (ER) | payer OTHER ==
[~2017-11-23] VITALS: Ht 175.2 cm; Wt 88.5 kg
== END 2017-11-23 14:46 | disposition home or self-care (01) ==
LOC: ED 13:27
DX: T15.01XA Foreign body in cornea, right eye, initial encounter (principal); Z79.899 Other long term (current) drug therapy; X58.XXXA Exposure to other specified factors, initial encounter; Y93.89 Activity, other specified; Y92.69 Other specified industrial and construction area as the place of occurrence of the external cause; Y99.9 Unspecified external cause status

== ENCOUNTER 2018-01-11 20:48 | Emergency (ER) | payer OTHER ==
[~2018-01-11] VITALS: Ht 175.2 cm; Wt 88.5 kg
[2018-01-11] MEDS ORDERED: CEPHALEXIN500 M1 PO (21:11)
[2018-01-11] MEDS ORDERED: SEPTDS PO (21:11)
== END 2018-01-11 21:13 | disposition home or self-care (01) ==
LOC: ED 20:48
DX: L02.411 Cutaneous abscess of right axilla (principal); F17.200 Nicotine dependence, unspecified, uncomplicated

== ENCOUNTER 2018-04-03 08:11 | Emergency (ER) | payer OTHER ==
[~2018-04-03] VITALS: Wt 88.5 kg
[2018-04-03 08:47] LABS: BASO % 0.5 % (0.0-1.0); EOS # 0.3 10*3/uL (0.0-0.4); EOS % 5.1 % (1.0-4.0); HEMOGLOBIN 14.5 g/dl (14.0-18.0); LYMPH # 2.1 10*3/uL (1.3-4.4); LYMPH % 34.1 % (27.0-41.0); MEAN CELL VOLUME 87.4 fl (80.0-94.0); MEAN CORPUSCULAR HGB 29.5 pg (27.0-31.0); MEAN CORPUSCULAR HGB CONC 33.7 g/dl (33.0-37.0); MEAN PLATELET VOLUME 9.1 fl (9.6-12.3); MONO # 0.5 10*3/uL (0.1-1.0); MONO % 8.4 % (3.0-9.0); NEUT # 3.3 10*3/uL (2.3-7.9); NEUT % 51.7 % (47.0-73.0); PLATELET COUNT AUTOMATED 221 10*3/uL (130-400); RED BLOOD COUNT 4.92 10*6/uL (4.50-5.90); RED CELL DISTRI WIDTH 12.9 % (0-14.5); WHITE BLOOD COUNT 6.3 10*3/uL (4.8-10.8)
[2018-04-03 09:00] LABS: BILIRUBIN NEGATIVE (NEGATIVE); BLOOD 3+ (NEGATIVE); CLARITY CLOUDY (CLEAR); COLOR BROWN (YELLOW); GLUCOSE NEGATIVE (NEGATIVE); KETONE NEGATIVE (NEGATIVE); LEUKO ESTERASE NEGATIVE (NEGATIVE); NITRITE NEGATIVE (NEGATIVE); PH 5.5 (5.0-9.0); SPECIFIC GRAVITY >= 1.030 (1.005-1.030); UROBILINOGEN 0.2 E.U./dl (0.2-1.0)
[2018-04-03 09:02] LABS: ALBUMIN 3.4 gm/dl (3.1-4.5); ALKALINE PHOSPHATASE 92 U/L (45-117); BUN 18 mg/dl (7-24); CHLORIDE 107 mmol/L (98-107); CREATININE 1.15 mg/dL (0.70-1.30); LIPASE 190 U/L (73-393); POTASSIUM 3.9 mmol/L (3.5-5.1); SGOT/AST 14 IU/L (3-35); SGPT/ALT 20 U/L (12-78); SODIUM 141 mmol/L (136-145); TOTAL PROTEIN 7.7 gm/dL (6.4-8.2)
[2018-04-03 09:21] LABS: RBC TNTC rbc/hpf (0-2)
[2018-04-03 09:25] LABS: CALCIUM OXALATE CRYSTALS 1+
[2018-04-03] MEDS ORDERED: IBU400 M1 PO (09:56)
== END 2018-04-03 10:00 | disposition home or self-care (01) ==
LOC: ED 08:11
PROVIDERS: Emergency Medicine
DX: N20.0 Calculus of kidney (principal); G89.29 Other chronic pain; Z87.442 Personal history of urinary calculi; Z79.2 Long term (current) use of antibiotics; Z79.899 Other long term (current) drug therapy

== ENCOUNTER 2018-04-29 15:47 | Emergency (ER) | payer OTHER | END 2018-04-29 17:59 | disposition home or self-care (01) | LOC: ED 15:47 | DX: S60.221A Contusion of right hand, initial encounter (principal); Z88.0 Allergy status to penicillin; W23.0XXA Caught, crushed, jammed, or pinched between moving objects, initial encounter; Y93.89 Activity, other specified; Y92.810 Car as the place of occurrence of the external cause; Y99.8 Other external cause status ==

== ENCOUNTER 2018-08-15 21:59 | Emergency (ER) | payer OTHER ==
[~2018-08-15] VITALS: Ht 175.2 cm; Wt 88.5 kg
== END 2018-08-15 22:42 | disposition home or self-care (01) ==
LOC: ED 21:59
DX: H00.015 Hordeolum externum left lower eyelid (principal); F17.200 Nicotine dependence, unspecified, uncomplicated; Z88.0 Allergy status to penicillin

== ENCOUNTER 2018-10-11 21:54 | Emergency (ER) | payer OTHER ==
[~2018-10-11] VITALS: Ht 175.2 cm; Wt 88.5 kg
[2018-10-11] MEDS ORDERED: DOXYCYCLINE100 MG PO (22:05)
[2018-12-22] MEDS ORDERED: CIPROFLOXACIN 110 ML OPH (16:36)
[2018-12-22] MEDS ORDERED: Motrin,Rufen800 MG PO (16:36)
== END 2018-10-11 22:35 | disposition home or self-care (01) ==
LOC: ED 21:54
DX: L03.115 Cellulitis of right lower limb (principal); Z88.0 Allergy status to penicillin

== ENCOUNTER 2018-11-14 22:22 | Emergency (ER) | payer OTHER ==
[~2018-11-14] VITALS: Wt 88.5 kg
[2018-11-14] MEDS ORDERED: BENADRYL25 M2 PO (22:39)
[2018-11-14] MEDS ORDERED: SEPTDS PO (22:39)
[2018-12-22] MEDS ORDERED: CIPROFLOXACIN 110 ML OPH (16:36)
[2018-12-22] MEDS ORDERED: Motrin,Rufen800 MG PO (16:36)
== END 2018-11-14 23:45 | disposition home or self-care (01) ==
LOC: ED 22:22
DX: L02.416 Cutaneous abscess of left lower limb (principal); L02.415 Cutaneous abscess of right lower limb; Z88.0 Allergy status to penicillin; Z79.2 Long term (current) use of antibiotics; Z79.899 Other long term (current) drug therapy

== ENCOUNTER 2019-03-01 18:38 | Emergency (ER) | payer OTHER ==
[~2019-03-01] VITALS: Ht 175.2 cm; Wt 88.5 kg
[~2019-03-01 18:38] MED LIST changes: +CIPROFLOXACIN 110 ML OPH
[2019-03-01] MEDS ORDERED: IBU800 M1 PO (19:15)
[2019-03-01] MEDS ORDERED: SEPTDS PO (19:15)
== END 2019-03-01 19:14 | disposition home or self-care (01) ==
LOC: ED 18:38
DX: S80.261A Insect bite (nonvenomous), right knee, initial encounter (principal); L03.115 Cellulitis of right lower limb; F17.200 Nicotine dependence, unspecified, uncomplicated; Z88.0 Allergy status to penicillin; W57.XXXA Bitten or stung by nonvenomous insect and other nonvenomous arthropods, initial encounter; Y93.89 Activity, other specified; Y92.89 Other specified places as the place of occurrence of the external cause; Y99.8 Other external cause status

== ENCOUNTER 2019-04-11 08:17 | Emergency (ER) | payer OTHER ==
[~2019-04-11] VITALS: Ht 175.2 cm; Wt 88.5 kg
[~2019-04-11 08:17] MED LIST changes: +IBU800 M1 PO
[2019-04-11] MEDS ORDERED: TYLENOL EXTRA500 MG PO (09:21)
[2019-04-11] MEDS ORDERED: THROAT SPRAY177 ML MM (09:21)
[2019-04-11] MEDS ORDERED: IBU800 M2 PO (09:21)
[2019-04-12] MEDS ORDERED: ZITHROMAX250 MG PO (17:24)
== END 2019-04-11 09:35 | disposition home or self-care (01) ==
LOC: ED 08:17
DX: J06.9 Acute upper respiratory infection, unspecified (principal); G89.29 Other chronic pain; Z88.0 Allergy status to penicillin; Z79.2 Long term (current) use of antibiotics; Z79.899 Other long term (current) drug therapy; Z87.442 Personal history of urinary calculi

== ENCOUNTER 2019-07-14 03:27 | Emergency (ER) | payer OTHER ==
[~2019-07-14] VITALS: Ht 175.2 cm; Wt 88.5 kg
[~2019-07-14 03:27] MED LIST changes: +IBU800 M2 PO; +THROAT SPRAY177 ML MM; +TYLENOL EXTRA500 MG PO; +ZITHROMAX250 MG PO
[2019-07-14] MEDS ORDERED: ACYCLOVIR800 MG PO (05:28)
== END 2019-07-14 05:45 | disposition home or self-care (01) ==
LOC: ED 03:27
DX: B02.9 Zoster without complications (principal); G89.29 Other chronic pain; F17.200 Nicotine dependence, unspecified, uncomplicated; Z87.442 Personal history of urinary calculi; Z88.0 Allergy status to penicillin; Z79.2 Long term (current) use of antibiotics; Z79.899 Other long term (current) drug therapy

== ENCOUNTER 2019-07-22 21:16 | Emergency (ER) | payer OTHER ==
[~2019-07-22] VITALS: Ht 175.2 cm; Wt 88.5 kg
[~2019-07-22 21:16] MED LIST changes: +ACYCLOVIR800 MG PO
== END 2019-07-22 22:58 | disposition home or self-care (01) ==
LOC: ED 21:16
DX: H01.00A Unspecified blepharitis right eye, upper and lower eyelids (principal); F17.200 Nicotine dependence, unspecified, uncomplicated; Z88.0 Allergy status to penicillin; Z79.899 Other long term (current) drug therapy

== ENCOUNTER → 2020-08-08 | Outpatient (CLI) | payer OTHER | END | disposition home or self-care (01) | LOC: COVID19 14:02 | PROVIDERS: ATTEND Dentist General Practice | DX: Z20.822 Contact with and (suspected) exposure to COVID-19 (principal); K02.9 Dental caries, unspecified; F41.9 Anxiety disorder, unspecified ==

== ENCOUNTER → 2020-08-12 | Day surgery (SDC) | payer OTHER ==
[2020-08-08 13:17] VITALS: BP 148/94
[~2020-08-12] VITALS: Ht 175.2 cm
[2020-08-12 10:19] VITALS: BP 159/101
[2020-08-12 12:45] VITALS: BP 135/66
[2020-08-12 13:00] VITALS: BP 133/71
[2020-08-12 13:14] VITALS: BP 137/80
[2020-08-12 13:28] VITALS: BP 140/78
[2020-08-12 13:44] VITALS: BP 147/78
== END | disposition home or self-care (01) ==
LOC: SDC 08-08 13:15
PROVIDERS: ATTEND Dentist General Practice
DX: K00.7 Teething syndrome (principal); K02.9 Dental caries, unspecified; F41.9 Anxiety disorder, unspecified; F17.210 Nicotine dependence, cigarettes, uncomplicated; Z79.899 Other long term (current) drug therapy

== ENCOUNTER 2020-10-30 21:35 | Inpatient (IN) | payer OTHER ==
[~2020-10-30] VITALS: Ht 175.2 cm; Wt 88.6 kg
[2020-10-30 21:37] VITALS: BP 145/94
[2020-10-31 06:28] LABS: BASO % 0.3 % (0.0-1.0); EOS # 0.2 10*3/uL (0.0-0.4); EOS % 1.5 % (1.0-4.0); HEMATOCRIT 43.9 % (42.0-52.0); LYMPH # 1.9 10*3/uL (1.3-4.4); LYMPH % 17.2 % (27.0-41.0); MEAN CELL VOLUME 87.3 fl (80.0-94.0); MEAN CORPUSCULAR HGB 28.8 pg (27.0-31.0); MEAN PLATELET VOLUME 9.6 fl (9.6-12.3); MONO # 0.9 10*3/uL (0.1-1.0); MONO % 7.9 % (3.0-9.0); NEUT # 8.2 10*3/uL (2.3-7.9); NEUT % 72.7 % (47.0-73.0); PLATELET COUNT AUTOMATED 215 10*3/uL (130-400); RED BLOOD COUNT 5.03 10*6/uL (4.50-5.90); RED CELL DISTRI WIDTH 13.2 % (0-14.5); WHITE BLOOD COUNT 11.2 10*3/uL (4.8-10.8)
[2020-10-31 06:38] LABS: ACT PARTIAL THROMBO TIME 26.4 SECONDS (20.0-32.1); INTERNATIONAL NORM RATIO 0.9 (2.0-3.5)
[2020-10-31 06:46] LABS: ALBUMIN 3.5 gm/dl (3.1-4.5); ALKALINE PHOSPHATASE 100 U/L (45-117); BUN 10 mg/dl (7-24); CHLORIDE 108 mmol/L (98-107); CHOLESTEROL 167 mg/dL (<200); CREATININE 0.92 mg/dL (0.70-1.30); LDL CHOLESTEROL 103 mg/dL (9-159); POTASSIUM 3.6 mmol/L (3.5-5.1); SGOT/AST 11 IU/L (3-35); SGPT/ALT 22 U/L (12-78); SODIUM 135 mmol/L (136-145); TOTAL PROTEIN 7.6 gm/dL (6.4-8.2); TRIGLYCERIDES 158 mg/dl (<150)
[2020-10-31 08:00] VITALS: BP 148/80
[2020-10-31] MEDS ORDERED: HYDROCODONE-AC1 EAC1 PO ×3 (15:39→15:46)
[2020-10-31] MEDS ORDERED: ASPIRIN CHEWABL81 MG PO (15:42)
[2020-10-31 16:00] VITALS: BP 156/99
== END 2020-10-31 16:55 | disposition home or self-care (01) | DRG 342 ==
LOC: ED 21:35 → EDHOLD 22:29 → 5E 22:29
PROVIDERS: Hospitalist; ADMIT Internal Medicine; ATTEND Internal Medicine
PROC: 2W3RX1Z Immobilization of Left Lower Leg using Splint (ICD-10-PCS; principal; 2020-10-31)
DX: S82.145A Nondisplaced bicondylar fracture of left tibia, initial encounter for closed fracture (principal); D72.829 Elevated white blood cell count, unspecified; E87.1 Hypo-osmolality and hyponatremia; F17.210 Nicotine dependence, cigarettes, uncomplicated; E87.8 Other disorders of electrolyte and fluid balance, not elsewhere classified; R73.9 Hyperglycemia, unspecified; E83.41 Hypermagnesemia; W18.39XA Other fall on same level, initial encounter; Y93.89 Activity, other specified; Y92.89 Other specified places as the place of occurrence of the external cause; Y99.8 Other external cause status; Z71.6 Tobacco abuse counseling; Z88.0 Allergy status to penicillin; Z82.3 Family history of stroke; Z83.3 Family history of diabetes mellitus; Z82.49 Family history of ischemic heart disease and other diseases of the circulatory system; Z87.442 Personal history of urinary calculi; Z82.0 Family history of epilepsy and other diseases of the nervous system

== ENCOUNTER 2020-11-17 17:10 | Emergency (ER) | payer OTHER ==
[~2020-11-17] VITALS: Ht 175.2 cm; Wt 88.0 kg
[~2020-11-17 17:10] MED LIST changes: +ASPIRIN CHEWABL81 MG PO; +BSC; +HYDROCODON-ACE1 EACH PO; +HYDROCODONE-AC1 EAC1 PO; +LISINOPRIL2.5 MG PO; +WALKER
== END 2020-11-17 20:13 | disposition home or self-care (01) ==
LOC: ED 17:10
DX: M79.605 Pain in left leg (principal); Z98.890 Other specified postprocedural states; Z88.0 Allergy status to penicillin; Z79.82 Long term (current) use of aspirin; Z79.899 Other long term (current) drug therapy; F17.200 Nicotine dependence, unspecified, uncomplicated

== ENCOUNTER → 2020-11-19 | Outpatient (CLI) | payer OTHER ==
[~2020-11-19] MED LIST changes: +PERCOCET 5-3251 EACH PO
== END | disposition home or self-care (01) ==
LOC: ORTHO 00:31
PROVIDERS: ATTEND Orthopaedic Surgery
DX: S82.145D Nondisplaced bicondylar fracture of left tibia, subsequent encounter for closed fracture with routine healing (principal); X58.XXXD Exposure to other specified factors, subsequent encounter

== ENCOUNTER 2020-11-24 21:26 | Emergency (ER) | payer OTHER ==
[~2020-11-24] VITALS: Wt 88.5 kg
[~2020-11-24 21:26] MED LIST changes: -PERCOCET 5-3251 EACH PO
== END 2020-11-24 22:10 | disposition home or self-care (01) ==
LOC: ED 21:26
DX: G89.28 Other chronic postprocedural pain (principal); M79.605 Pain in left leg; F17.200 Nicotine dependence, unspecified, uncomplicated; Z88.0 Allergy status to penicillin; Z79.82 Long term (current) use of aspirin; Z79.899 Other long term (current) drug therapy; Z98.890 Other specified postprocedural states

== ENCOUNTER 2020-11-29 13:07 | Emergency (ER) | payer OTHER ==
[~2020-11-29] VITALS: Wt 88.5 kg
[2020-11-29 14:01] LABS: BASO % 0.4 % (0.0-1.0); EOS # 0.3 10*3/uL (0.0-0.4); EOS % 3.1 % (1.0-4.0); HEMATOCRIT 42.2 % (42.0-52.0); LYMPH % 21.7 % (27.0-41.0); MEAN CELL VOLUME 86.1 fl (80.0-94.0); MEAN CORPUSCULAR HGB 26.9 pg (27.0-31.0); MEAN CORPUSCULAR HGB CONC 31.3 g/dl (33.0-37.0); MEAN PLATELET VOLUME 8.6 fl (9.6-12.3); MONO # 0.5 10*3/uL (0.1-1.0); MONO % 5.8 % (3.0-9.0); NEUT # 6.4 10*3/uL (2.3-7.9); NEUT % 68.8 % (47.0-73.0); PLATELET COUNT AUTOMATED 370 10*3/uL (130-400); RED CELL DISTRI WIDTH 12.7 % (0-14.5); WHITE BLOOD COUNT 9.3 10*3/uL (4.8-10.8)
[2020-11-29 14:17] LABS: ALBUMIN 3.3 gm/dl (3.1-4.5); ALKALINE PHOSPHATASE 119 U/L (45-117); BUN 12 mg/dl (7-24); CHLORIDE 103 mmol/L (98-107); CREATININE 0.96 mg/dL (0.70-1.30); POTASSIUM 3.4 mmol/L (3.5-5.1); SGOT/AST 13 IU/L (3-35); SGPT/ALT 20 U/L (12-78); SODIUM 137 mmol/L (136-145); TOTAL PROTEIN 8.7 gm/dL (6.4-8.2)
== END 2020-11-29 16:32 | disposition left against medical advice (07) ==
LOC: ED 13:07
PROVIDERS: Physician Assistant
DX: T81.30XA Disruption of wound, unspecified, initial encounter (principal); G89.29 Other chronic pain; F17.200 Nicotine dependence, unspecified, uncomplicated; Z53.29 Procedure and treatment not carried out because of patient's decision for other reasons; Z88.0 Allergy status to penicillin; Z79.82 Long term (current) use of aspirin; Z79.899 Other long term (current) drug therapy; Z98.890 Other specified postprocedural states; W01.0XXA Fall on same level from slipping, tripping and stumbling without subsequent striking against object, initial encounter; Y93.89 Activity, other specified; Y92.89 Other specified places as the place of occurrence of the external cause; Y99.8 Other external cause status

== ENCOUNTER 2020-12-01 00:08 | Emergency (ER) | payer OTHER ==
[~2020-12-01] VITALS: Ht 170.1 cm; Wt 83.7 kg
== END 2020-12-01 02:00 | disposition home or self-care (01) ==
LOC: ED 00:08
DX: G89.29 Other chronic pain (principal); M25.562 Pain in left knee; F17.200 Nicotine dependence, unspecified, uncomplicated; Z88.0 Allergy status to penicillin; Z79.82 Long term (current) use of aspirin; Z79.899 Other long term (current) drug therapy; Z98.890 Other specified postprocedural states

== ENCOUNTER 2020-12-04 22:00 | Emergency (ER) | payer OTHER ==
[~2020-12-04] VITALS: Wt 90.7 kg
[2020-12-04 22:57] LABS: BASO % 0.5 % (0.0-1.0); EOS # 0.3 10*3/uL (0.0-0.4); EOS % 3.4 % (1.0-4.0); LYMPH # 2.3 10*3/uL (1.3-4.4); LYMPH % 26.9 % (27.0-41.0); MEAN CELL VOLUME 86.2 fl (80.0-94.0); MEAN CORPUSCULAR HGB 27.9 pg (27.0-31.0); MEAN CORPUSCULAR HGB CONC 32.4 g/dl (33.0-37.0); MEAN PLATELET VOLUME 8.4 fl (9.6-12.3); MONO # 0.7 10*3/uL (0.1-1.0); MONO % 8.2 % (3.0-9.0); NEUT # 5.2 10*3/uL (2.3-7.9); NEUT % 60.9 % (47.0-73.0); PLATELET COUNT AUTOMATED 308 10*3/uL (130-400); RED BLOOD COUNT 4.41 10*6/uL (4.50-5.90); RED CELL DISTRI WIDTH 13.3 % (0-14.5); WHITE BLOOD COUNT 8.5 10*3/uL (4.8-10.8)
[2020-12-04] MEDS ORDERED: LEVOFLOXACIN500 MG PO (23:18)
[2020-12-04] MEDS ORDERED: PERCOCET 5-3251 EACH PO (23:19)
== END 2020-12-05 | disposition home or self-care (01) ==
LOC: ED 22:00
PROVIDERS: Emergency Medicine
DX: L76.22 Postprocedural hemorrhage of skin and subcutaneous tissue following other procedure (principal); M25.562 Pain in left knee; F17.200 Nicotine dependence, unspecified, uncomplicated; Z88.0 Allergy status to penicillin; Z79.82 Long term (current) use of aspirin; Z79.899 Other long term (current) drug therapy; Z98.890 Other specified postprocedural states; Y83.8 Other surgical procedures as the cause of abnormal reaction of the patient, or of later complication, without mention of misadventure at the time of the procedure

== ENCOUNTER → 2020-12-09 | Outpatient (CLI) | payer OTHER ==
[~2020-12-09] MED LIST changes: +PERCOCET 5-3251 EACH PO
== END ==
LOC: WOUNDCARE 01:11
PROVIDERS: ATTEND Surgery
DX: T81.41XA Infection following a procedure, superficial incisional surgical site, initial encounter (principal); F17.200 Nicotine dependence, unspecified, uncomplicated; Z98.890 Other specified postprocedural states; Y83.8 Other surgical procedures as the cause of abnormal reaction of the patient, or of later complication, without mention of misadventure at the time of the procedure; Y92.238 Other place in hospital as the place of occurrence of the external cause

== ENCOUNTER → 2020-12-16 | Outpatient (CLI) | payer OTHER | LOC: WOUNDCARE 01:50 | PROVIDERS: ATTEND Surgery | DX: T81.41XD Infection following a procedure, superficial incisional surgical site, subsequent encounter (principal); F17.200 Nicotine dependence, unspecified, uncomplicated; Z98.890 Other specified postprocedural states; Y83.8 Other surgical procedures as the cause of abnormal reaction of the patient, or of later complication, without mention of misadventure at the time of the procedure ==

== ENCOUNTER → 2020-12-19 | Outpatient (CLI) | payer OTHER | END | disposition home or self-care (01) | LOC: ORTHO 00:38 | PROVIDERS: ATTEND Orthopaedic Surgery | DX: S82.145D Nondisplaced bicondylar fracture of left tibia, subsequent encounter for closed fracture with routine healing (principal); M25.462 Effusion, left knee; X58.XXXD Exposure to other specified factors, subsequent encounter ==

== ENCOUNTER 2020-12-23 20:47 | Emergency (ER) | payer OTHER | END 2020-12-23 22:02 | disposition home or self-care (01) | LOC: ED 20:47 | DX: M25.562 Pain in left knee (principal); M79.89 Other specified soft tissue disorders; F17.200 Nicotine dependence, unspecified, uncomplicated; Z88.0 Allergy status to penicillin ==

== ENCOUNTER 2020-12-26 15:08 | Emergency (ER) | payer OTHER ==
[~2020-12-26] VITALS: Ht 175.2 cm; Wt 88.5 kg
== END 2020-12-26 16:54 | disposition home or self-care (01) ==
LOC: ED 15:08
DX: M79.89 Other specified soft tissue disorders (principal); F17.200 Nicotine dependence, unspecified, uncomplicated; Z88.0 Allergy status to penicillin

== ENCOUNTER 2021-03-20 17:15 | Emergency (ER) | payer OTHER ==
[~2021-03-20] VITALS: Ht 175.2 cm; Wt 88.5 kg
[2021-03-20 18:35] LABS: BILIRUBIN Negative (Negative); BLOOD Negative (Negative); CLARITY Cloudy (Clear); COLOR Yellow (Yellow); GLUCOSE Negative (Negative); KETONE Negative (Negative); LEUKO ESTERASE 3+ (Negative); NITRITE Negative (Negative); PH 7.5 (4.5-8.0); SPECIFIC GRAVITY 1.015 (1.001-1.030)
[2021-03-20 19:13] LABS: BACTERIA 2+; FINE GRANULAR CAST 0-2; WBC TNTC wbc/hpf (0-5)
== END 2021-03-20 20:00 | disposition home or self-care (01) ==
LOC: ED 17:15
PROVIDERS: Nurse Practitioner Family
DX: A64 Unspecified sexually transmitted disease (principal); F17.200 Nicotine dependence, unspecified, uncomplicated; Z88.0 Allergy status to penicillin

== ENCOUNTER 2021-03-31 17:08 | Emergency (ER) | payer OTHER ==
[~2021-03-31] VITALS: Ht 175.2 cm; Wt 88.5 kg
== END 2021-03-31 19:30 | disposition left against medical advice (07) ==
LOC: ED 17:08
DX: Z20.2 Contact with and (suspected) exposure to infections with a predominantly sexual mode of transmission (principal); Z53.21 Procedure and treatment not carried out due to patient leaving prior to being seen by health care provider

== ENCOUNTER 2021-05-26 13:08 | Emergency (ER) | payer OTHER ==
[~2021-05-26] VITALS: Wt 88.5 kg
== END 2021-05-26 15:46 | disposition home or self-care (01) ==
LOC: ED 13:08
DX: S16.1XXA Strain of muscle, fascia and tendon at neck level, initial encounter (principal); M62.838 Other muscle spasm; R07.81 Pleurodynia; M54.50 Low back pain, unspecified; F17.200 Nicotine dependence, unspecified, uncomplicated; Z88.0 Allergy status to penicillin; Z79.899 Other long term (current) drug therapy; Z98.890 Other specified postprocedural states; V43.52XA Car driver injured in collision with other type car in traffic accident, initial encounter; Y93.I9 Activity, other involving external motion; Y92.488 Other paved roadways as the place of occurrence of the external cause; Y99.8 Other external cause status

== ENCOUNTER 2021-11-09 01:01 | Emergency (ER) | payer OTHER ==
[2021-11-09] MEDS ORDERED: METHOCARBAMOL500 M1 PO (01:20)
[2021-11-09] MEDS ORDERED: NAPROXEN250 MG PO (01:20)
== END 2021-11-09 01:30 | disposition home or self-care (01) ==
LOC: ED 01:01
DX: M25.562 Pain in left knee (principal); Z88.0 Allergy status to penicillin; Z87.891 Personal history of nicotine dependence

== ENCOUNTER 2021-11-23 05:24 | Emergency (ER) | payer OTHER ==
[~2021-11-23] VITALS: Ht 175.2 cm; Wt 81.6 kg
[~2021-11-23 05:24] MED LIST changes: +METHOCARBAMOL500 M1 PO; +NAPROXEN250 MG PO
[2021-11-23] MEDS ORDERED: Ondansetron4 MG PO ×2 (06:00)
== END 2021-11-23 06:00 | disposition home or self-care (01) ==
LOC: ED 05:24
DX: R11.0 Nausea (principal); Z88.0 Allergy status to penicillin; Z87.891 Personal history of nicotine dependence

== ENCOUNTER 2021-11-25 20:26 | Emergency (ER) | payer OTHER ==
[~2021-11-25] VITALS: Ht 175.2 cm; Wt 88.5 kg
[~2021-11-25 20:26] MED LIST changes: +Ondansetron4 MG PO
[2021-11-25] MEDS ORDERED: ASPIRIN ADULT L81 M1 PO (20:53)
[2021-11-25] MEDS ORDERED: HYDROCHLOROTH12.5 M2 PO (20:56)
== END 2021-11-25 22:07 | disposition home or self-care (01) ==
LOC: ED 20:26
DX: S05.02XA Injury of conjunctiva and corneal abrasion without foreign body, left eye, initial encounter (principal); F17.200 Nicotine dependence, unspecified, uncomplicated; Z98.890 Other specified postprocedural states; Z79.82 Long term (current) use of aspirin; Z79.899 Other long term (current) drug therapy; Z88.0 Allergy status to penicillin; X58.XXXA Exposure to other specified factors, initial encounter; Y93.89 Activity, other specified; Y92.89 Other specified places as the place of occurrence of the external cause; Y99.9 Unspecified external cause status

== ENCOUNTER 2021-12-15 18:13 | Emergency (ER) | payer OTHER ==
[~2021-12-15] VITALS: Ht 175.2 cm
[~2021-12-15 18:13] MED LIST changes: +ASPIRIN ADULT L81 M1 PO; +HYDROCHLOROTH12.5 M2 PO
== END 2021-12-15 20:08 | disposition home or self-care (01) ==
LOC: ED 18:13
DX: U07.1 COVID-19 (principal); G89.29 Other chronic pain; M25.562 Pain in left knee; F17.210 Nicotine dependence, cigarettes, uncomplicated; Z88.0 Allergy status to penicillin; Z79.82 Long term (current) use of aspirin; Z79.899 Other long term (current) drug therapy

== ENCOUNTER 2022-01-15 22:34 | Emergency (ER) | payer OTHER ==
[~2022-01-15] VITALS: Ht 175.2 cm; Wt 88.5 kg
[2022-01-15] MEDS ORDERED: SEPTDS PO (22:55)
[2022-01-15] MEDS ORDERED: IBU800 M1 PO (22:55)
== END 2022-01-15 23:05 | disposition home or self-care (01) ==
LOC: ED 22:34
DX: L72.0 Epidermal cyst (principal); F17.200 Nicotine dependence, unspecified, uncomplicated; Z88.0 Allergy status to penicillin; Z79.899 Other long term (current) drug therapy; Z79.82 Long term (current) use of aspirin

== ENCOUNTER 2022-01-17 21:27 | Emergency (ER) | payer OTHER | END 2022-01-17 22:49 | disposition home or self-care (01) | LOC: ED 21:27 | DX: R51.9 Headache, unspecified (principal); I10 Essential (primary) hypertension; Z88.0 Allergy status to penicillin; Z79.899 Other long term (current) drug therapy; Z79.82 Long term (current) use of aspirin; F17.200 Nicotine dependence, unspecified, uncomplicated; Z87.442 Personal history of urinary calculi ==

== ENCOUNTER 2022-01-28 20:50 | Emergency (ER) | payer OTHER ==
[~2022-01-28] VITALS: Wt 88.5 kg
[2022-01-28 21:18] LABS: BASO % 0.6 % (0.0-1.0); EOS # 0.2 10*3/uL (0.0-0.4); EOS % 3.6 % (1.0-4.0); HEMATOCRIT 43.4 % (42.0-52.0); LYMPH # 2.2 10*3/uL (1.3-4.4); LYMPH % 34.9 % (27.0-41.0); MEAN CELL VOLUME 86.6 fl (80.0-94.0); MEAN CORPUSCULAR HGB 28.5 pg (27.0-31.0); MEAN CORPUSCULAR HGB CONC 32.9 g/dl (33.0-37.0); MEAN PLATELET VOLUME 9.1 fl (9.6-12.3); MONO # 0.5 10*3/uL (0.1-1.0); MONO % 7.3 % (3.0-9.0); NEUT # 3.4 10*3/uL (2.3-7.9); NEUT % 53.3 % (47.0-73.0); PLATELET COUNT AUTOMATED 239 10*3/uL (130-400); RED BLOOD COUNT 5.01 10*6/uL (4.50-5.90); RED CELL DISTRI WIDTH 13.6 % (0-14.5); WHITE BLOOD COUNT 6.4 10*3/uL (4.8-10.8)
[2022-01-28 21:36] LABS: ALKALINE PHOSPHATASE 103 U/L (45-117); BUN 15 mg/dl (7-24); CHLORIDE 106 mmol/L (98-107); CREATININE 1.14 mg/dL (0.70-1.30); LIPASE 143 U/L (73-393); POTASSIUM 3.4 mmol/L (3.5-5.1); SGOT/AST 13 IU/L (3-35); SGPT/ALT 22 U/L (12-78); SODIUM 138 mmol/L (136-145); TOTAL PROTEIN 7.8 gm/dL (6.4-8.2)
[2022-01-28] MEDS ORDERED: ONDANSETRON4 MG SL (21:46)
[2022-01-28] MEDS ORDERED: POTASSIUM CHLO20 ME3 PO (21:47)
== END 2022-01-28 21:52 | disposition home or self-care (01) ==
LOC: ED 20:50
PROVIDERS: Emergency Medicine
DX: K52.9 Noninfective gastroenteritis and colitis, unspecified (principal); Z88.0 Allergy status to penicillin; Z79.899 Other long term (current) drug therapy; Z79.82 Long term (current) use of aspirin; Z98.890 Other specified postprocedural states; F17.200 Nicotine dependence, unspecified, uncomplicated

== ENCOUNTER 2022-02-12 22:58 | Emergency (ER) | payer OTHER ==
[~2022-02-12] VITALS: Ht 175.2 cm; Wt 88.5 kg
[~2022-02-12 22:58] MED LIST changes: +ONDANSETRON4 MG SL; +POTASSIUM CHLO20 ME3 PO
[2022-02-13] MEDS ORDERED: Motrin,Rufen800 MG PO (04:26)
== END 2022-02-13 04:27 | disposition home or self-care (01) ==
LOC: ED 22:58
DX: G89.29 Other chronic pain (principal); M25.562 Pain in left knee; Z76.0 Encounter for issue of repeat prescription; Z88.0 Allergy status to penicillin; Z79.899 Other long term (current) drug therapy; Z79.82 Long term (current) use of aspirin; Z87.891 Personal history of nicotine dependence

== ENCOUNTER 2022-03-04 19:16 | Emergency (ER) | payer OTHER ==
[~2022-03-04] VITALS: Ht 175.2 cm; Wt 88.5 kg
== END 2022-03-04 21:41 | disposition left against medical advice (07) ==
LOC: ED 19:16
DX: Z53.21 Procedure and treatment not carried out due to patient leaving prior to being seen by health care provider (principal)

== ENCOUNTER 2022-06-01 18:29 | Emergency (ER) | payer OTHER ==
[~2022-06-01] VITALS: Ht 175.2 cm; Wt 88.5 kg
== END 2022-06-01 22:34 | disposition home or self-care (01) ==
LOC: ED 18:29
DX: M79.605 Pain in left leg (principal); Z88.0 Allergy status to penicillin; Z98.890 Other specified postprocedural states; F17.200 Nicotine dependence, unspecified, uncomplicated

== ENCOUNTER 2022-06-05 22:04 | Emergency (ER) | payer OTHER ==
[~2022-06-05] VITALS: Ht 175.2 cm; Wt 88.5 kg
[2022-06-05] MEDS ORDERED: CLINDAMYCIN HC300 MG PO (23:36)
== END 2022-06-05 23:49 | disposition home or self-care (01) ==
LOC: ED 22:04
DX: L02.415 Cutaneous abscess of right lower limb (principal); Z88.0 Allergy status to penicillin; F17.210 Nicotine dependence, cigarettes, uncomplicated; Z87.442 Personal history of urinary calculi; Z98.890 Other specified postprocedural states; I10 Essential (primary) hypertension

== ENCOUNTER 2022-07-05 22:43 | Emergency (ER) | payer OTHER ==
[~2022-07-05] VITALS: Ht 175.2 cm; Wt 86.2 kg
[~2022-07-05 22:43] MED LIST changes: +CLINDAMYCIN HC300 MG PO
[2022-07-05 23:29] LABS: BASO # 0.1 10*3/uL (0.0-0.1); BASO % 0.7 % (0.0-1.0); EOS # 0.2 10*3/uL (0.0-0.4); EOS % 3.1 % (1.0-4.0); HEMATOCRIT 42.5 % (42.0-52.0); LYMPH # 2.9 10*3/uL (1.3-4.4); MEAN CELL VOLUME 85.2 fl (80.0-94.0); MEAN CORPUSCULAR HGB 27.7 pg (27.0-31.0); MEAN CORPUSCULAR HGB CONC 32.5 g/dl (33.0-37.0); MEAN PLATELET VOLUME 8.9 fl (9.6-12.3); MONO # 0.5 10*3/uL (0.1-1.0); MONO % 6.7 % (3.0-9.0); NEUT # 3.6 10*3/uL (2.3-7.9); NEUT % 49.4 % (47.0-73.0); PLATELET COUNT AUTOMATED 243 10*3/uL (130-400); RED BLOOD COUNT 4.99 10*6/uL (4.50-5.90); RED CELL DISTRI WIDTH 14.2 % (0-14.5); WHITE BLOOD COUNT 7.3 10*3/uL (4.8-10.8)
[2022-07-05 23:39] LABS: ACT PARTIAL THROMBO TIME 28.5 SECONDS (20.0-32.1); INTERNATIONAL NORM RATIO 0.9 (2.0-3.5)
[2022-07-05 23:43] LABS: ALKALINE PHOSPHATASE 91 U/L (46-116); BUN 13 mg/dl (9-23); CHLORIDE 108 mmol/L (98-107); POTASSIUM 3.5 mmol/L (3.4-5.1); SGPT/ALT 15 U/L (10-49); TOTAL PROTEIN 7.3 gm/dL (6.0-8.0)
[2022-07-05] MEDS ORDERED: HYDR25T PO (23:56)
== END 2022-07-06 | disposition home or self-care (01) ==
LOC: ED 22:43
PROVIDERS: Internal Medicine
DX: R20.2 Paresthesia of skin (principal); Z88.0 Allergy status to penicillin; Z98.890 Other specified postprocedural states; F17.200 Nicotine dependence, unspecified, uncomplicated

== ENCOUNTER 2022-11-13 21:18 | Emergency (ER) | payer OTHER ==
[~2022-11-13] VITALS: Ht 175.2 cm; Wt 88.5 kg
[~2022-11-13 21:18] MED LIST changes: +HYDR25T PO
[2022-11-13 22:19] LABS: BASO % 0.5 % (0.0-1.0); EOS # 0.2 10*3/uL (0.0-0.4); EOS % 2.3 % (1.0-4.0); HEMATOCRIT 43.5 % (42.0-52.0); LYMPH # 2.1 10*3/uL (1.3-4.4); LYMPH % 24.9 % (27.0-41.0); MEAN CELL VOLUME 84.5 fl (80.0-94.0); MEAN CORPUSCULAR HGB 28.3 pg (27.0-31.0); MEAN CORPUSCULAR HGB CONC 33.6 g/dl (33.0-37.0); MONO # 0.5 10*3/uL (0.1-1.0); MONO % 6.3 % (3.0-9.0); NEUT # 5.5 10*3/uL (2.3-7.9); NEUT % 65.8 % (47.0-73.0); PLATELET COUNT AUTOMATED 229 10*3/uL (130-400); RED BLOOD COUNT 5.15 10*6/uL (4.50-5.90); RED CELL DISTRI WIDTH 13.9 % (0-14.5); WHITE BLOOD COUNT 8.4 10*3/uL (4.8-10.8)
[2022-11-13 22:40] LABS: BUN 8 mg/dl (9-23); CHLORIDE 106 mmol/L (98-107); POTASSIUM 2.9 mmol/L (3.4-5.1)
[2022-11-13] MEDS ORDERED: SEPTDS PO (22:56)
== END 2022-11-13 23:00 | disposition home or self-care (01) ==
LOC: ED 21:18
PROVIDERS: Internal Medicine
DX: S81.802A Unspecified open wound, left lower leg, initial encounter (principal); E87.6 Hypokalemia; Z87.442 Personal history of urinary calculi; I10 Essential (primary) hypertension; Z88.0 Allergy status to penicillin; Z98.890 Other specified postprocedural states; F17.200 Nicotine dependence, unspecified, uncomplicated; X58.XXXA Exposure to other specified factors, initial encounter; Y93.89 Activity, other specified; Y92.009 Unspecified place in unspecified non-institutional (private) residence as the place of occurrence of the external cause; Y99.8 Other external cause status

== ENCOUNTER → 2023-07-01 | Outpatient (CLI) | payer OTHER | END | disposition home or self-care (01) | LOC: ORTHO 01:29 | PROVIDERS: ATTEND Orthopaedic Surgery | DX: M25.862 Other specified joint disorders, left knee (principal) ==

== ENCOUNTER → 2023-07-29 | Outpatient (CLI) | payer OTHER | END | disposition home or self-care (01) | LOC: NM 10:00 | PROVIDERS: ATTEND Orthopaedic Surgery | DX: T84.7XXA Infection and inflammatory reaction due to other internal orthopedic prosthetic devices, implants and grafts, initial encounter (principal); Y84.9 Medical procedure, unspecified as the cause of abnormal reaction of the patient, or of later complication, without mention of misadventure at the time of the procedure; Y92.89 Other specified places as the place of occurrence of the external cause ==

== ENCOUNTER 2023-08-18 02:21 | Inpatient (IN) | payer OTHER ==
[2023-08-15 12:25] VITALS: BP 158/102
[2023-08-15 13:03] LABS: BILIRUBIN Negative (Negative); BLOOD Negative (Negative); CLARITY Clear (Clear); COLOR Yellow (Yellow); GLUCOSE Negative (Negative); KETONE Negative (Negative); LEUKO ESTERASE Trace (Negative); NITRITE Negative (Negative)
[2023-08-15 13:21] LABS: MUCOUS TRACE
[2023-08-15 13:32] LABS: BUN 12 mg/dl (9-23); CHLORIDE 105 mmol/L (98-107); POTASSIUM 3.7 mmol/L (3.4-5.1)
[2023-08-18] VITALS (10 sets, daily range): BP systolic 88–170; BP diastolic 49–108
[~2023-08-18] VITALS: Ht 175.2 cm; Wt 88.5 kg
[2023-08-18] MEDS ORDERED: Lactated Ringer's Solution 1,000 ML IV SCH (08:40)
[2023-08-18] MEDS ORDERED: Midazolam Hydrochloride 2 MG/2 ML VIAL IV ONE (08:40)
[2023-08-18] MEDS ORDERED: TRANEXAMIC ACID IN NACL,ISO-OS 100 ML IV ONE ×2 (08:50→08:53)
[2023-08-18] MEDS ORDERED: Vancomycin Hydrochloride 250 ML IV ONE ×2 (08:50→08:53)
[2023-08-18] MEDS ORDERED: Lactated Ringer's Solution 1,000 ML IV ONE ×2 (08:53→10:11)
[2023-08-18] MEDS ORDERED: Ropivacaine Hydrochloride 5 MG/ML 20 ML AMP IJ ONE (09:06)
[2023-08-18] MEDS ORDERED: Midazolam Hydrochloride 5 MG/5 ML VIAL ONE (09:06)
[2023-08-18] MEDS ORDERED: DEXAMETHASONE SODIUM PHOSP/PRESERVATIVE FREE 10 MG/ML VIAL ONE (09:07)
[2023-08-18] MEDS ORDERED: hydrALAZINE hydrochloride 20 MG/ML VIAL ONE (09:46)
[2023-08-18] MEDS ORDERED: BUPIVACAINE 0.5% 10 ML VIAL ONE (10:05)
[2023-08-18] MEDS ORDERED: HYDROmorphONE Hydrochloride 1 ML IV ONE (12:47)
[2023-08-18] MEDS ORDERED: ATORVASTATIN CA40 M1 PO (13:41)
[2023-08-18] MEDS ORDERED: ACETAMINOPHEN 325 MG TAB PO PRN (13:50)
[2023-08-18] MEDS ORDERED: TEMAZEPAM 15 MG CAP PO PRN (13:50)
[2023-08-18] MEDS ORDERED: Magnesium Hydroxide 30 ML UDC PO PRN (13:50)
[2023-08-18] MEDS ORDERED: ACETAMINOPHEN 650 MG SUPP R PRN (13:50)
[2023-08-18] MEDS ORDERED: MORPHINE Sulfate 2 MG/ML SYR IV PRN (13:50)
[2023-08-18] MEDS ORDERED: Acetaminophen/Hydrocodone 5 MG/325 MG TABLET PO PRN (13:50)
[2023-08-18] MEDS ORDERED: Ondansetron Hydrochloride 4 MG/2 ML VIAL IV PRN (13:50)
[2023-08-18] MEDS ORDERED: BISACODYL 5 MG TAB PO PRN (13:50)
[2023-08-18] MEDS ORDERED: BISACODYL 10 MG SUPP R PRN (13:50)
[2023-08-18] MEDS ORDERED: Cefepime Hydrochloride 1 GM in SODIUM CHLORIDE 0.9% 50 ML IV SCH (14:55)
[2023-08-18] MEDS ORDERED: Nicotine 21 MG PATCH T SCH (15:00)
[2023-08-18] MEDS ORDERED: Piperacillin Sodium/Tazobact 50 ML IV SCH (16:00)
[2023-08-18 17:06] LABS: HEMATOCRIT 45.1 % (42.0-52.0); MEAN CELL VOLUME 85.1 fl (80.0-94.0); MEAN CORPUSCULAR HGB 27.2 pg (27.0-31.0); MEAN CORPUSCULAR HGB CONC 31.9 g/dl (33.0-37.0); MEAN PLATELET VOLUME 8.9 fl (9.6-12.3); PLATELET COUNT AUTOMATED 229 10*3/uL (130-400); RED CELL DISTRI WIDTH 14.1 % (0-14.5)
[2023-08-18 17:07] LABS: MANUAL DIFF REFLEX YES
[2023-08-18 17:26] LABS: ALKALINE PHOSPHATASE 108 U/L (46-116); BUN 14 mg/dl (9-23); CHLORIDE 104 mmol/L (98-107); POTASSIUM 3.7 mmol/L (3.4-5.1); SGPT/ALT 18 U/L (5-49); TOTAL PROTEIN 7.4 gm/dL (6.0-8.0)
[2023-08-18 17:31] LABS: PLATELET SUFFICIENCY NORMAL (NORMAL); TOTAL CELLS COUNTED 100 #CELLS
[2023-08-18 17:32] LABS: BURR CELLS FEW
[2023-08-18] MEDS ORDERED: SODIUM CHLORIDE 0.9% 1,000 ML IV SCH (17:45)
[2023-08-18] MEDS ORDERED: SEVOFLURANE 250 ML BOT INH ONE (18:19)
[2023-08-18] MEDS ORDERED: PROPOFOL 200 MG/20 ML VIAL IV ONE (18:19)
[2023-08-18] MEDS ORDERED: Neostigmine Methylsulfate 3 MG/3 ML SYRINGE IV ONE (18:19)
[2023-08-18] MEDS ORDERED: GLYCOPYRROLATE IN WATER/PF 0.4 MG/2 ML SYRINGE IV ONE (18:19)
[2023-08-18] MEDS ORDERED: Ondansetron Hydrochloride 4 MG/2 ML VIAL IV ONE (18:19)
[2023-08-18] MEDS ORDERED: Lidocaine Hydrochloride 2% 10 ML AMP IM ONE (18:19)
[2023-08-18] MEDS ORDERED: ROCURONIUM BROMIDE 50 MG/5 ML SYRINGE IV ONE (18:19)
[2023-08-18] MEDS ORDERED: VANCOMYCIN/WATER FOR INJ (PEG) 300 ML IV SCH (20:00)
[2023-08-18] MEDS ORDERED: Vancomycin Hydrochloride 1,000 MG in SODIUM CHLORIDE 0.9% 250 ML IV SCH (22:00)
[2023-08-19] VITALS: BP 161/91
[2023-08-19 07:26] LABS: BASO % 0.1 % (0.0-1.0); EOS % 0.1 % (1.0-4.0); HEMATOCRIT 42.4 % (42.0-52.0); LYMPH # 1.8 10*3/uL (1.3-4.4); MEAN CELL VOLUME 85.3 fl (80.0-94.0); MEAN CORPUSCULAR HGB CONC 31.6 g/dl (33.0-37.0); MEAN PLATELET VOLUME 9.1 fl (9.6-12.3); MONO % 5.8 % (3.0-9.0); NEUT # 13.9 10*3/uL (2.3-7.9); NEUT % 82.5 % (47.0-73.0); PLATELET COUNT AUTOMATED 263 10*3/uL (130-400); RED BLOOD COUNT 4.97 10*6/uL (4.50-5.90); RED CELL DISTRI WIDTH 14.4 % (0-14.5); WHITE BLOOD COUNT 16.8 10*3/uL (4.8-10.8)
[2023-08-19 07:44] LABS: ACT PARTIAL THROMBO TIME 26.8 SECONDS (20.0-32.1); BUN 15 mg/dl (9-23); CHLORIDE 106 mmol/L (98-107); POTASSIUM 4.1 mmol/L (3.4-5.1)
[2023-08-19 07:51] LABS: ALKALINE PHOSPHATASE 93 U/L (46-116); BUN 16 mg/dl (9-23); CHLORIDE 106 mmol/L (98-107); CHOLESTEROL 157 mg/dL (<200); FREE T4 1.11 ng/dl (0.89-1.76); LDL CHOLESTEROL 94 mg/dL (9-159); POTASSIUM 4.1 mmol/L (3.4-5.1); SGPT/ALT 14 U/L (5-49); TOTAL PROTEIN 6.9 gm/dL (6.0-8.0); TRIGLYCERIDES 140 mg/dl (<150)
[2023-08-19 08:00] VITALS: BP 130/82
[2023-08-19 09:05] LABS: VITAMIN D, 25-HYDROXY 32.1 ng/mL (30-100)
[2023-08-19] MEDS ORDERED: Enoxaparin Sodium 40 MG/0.4 ML SYR SC SCH (10:00)
[2023-08-19] MEDS ORDERED: ASPIRIN, CHEWABLE 81 MG TAB PO SCH (10:00)
[2023-08-19] MEDS ORDERED: HYDROCHLOROTHIAZIDE 25 MG TAB PO SCH (10:00)
[2023-08-19] MEDS ORDERED: Cholecalciferol 2,000 UNIT TABLET (50 MCG) PO SCH (10:00)
[2023-08-19] MEDS ORDERED: ATORVASTATIN CALCIUM 40 MG TABLET PO SCH (10:00)
[2023-08-19 12:00] VITALS: BP 142/96
[2023-08-19 16:00] VITALS: BP 154/100
[2023-08-20] VITALS: BP 156/90
[2023-08-20 06:11] LABS: BASO % 0.4 % (0.0-1.0); EOS # 0.2 10*3/uL (0.0-0.4); EOS % 1.9 % (1.0-4.0); LYMPH # 2.9 10*3/uL (1.3-4.4); LYMPH % 28.1 % (27.0-41.0); MEAN CELL VOLUME 85.1 fl (80.0-94.0); MEAN CORPUSCULAR HGB 27.2 pg (27.0-31.0); MEAN PLATELET VOLUME 9.2 fl (9.6-12.3); MONO # 0.6 10*3/uL (0.1-1.0); MONO % 6.2 % (3.0-9.0); NEUT # 6.5 10*3/uL (2.3-7.9); NEUT % 63.2 % (47.0-73.0); PLATELET COUNT AUTOMATED 248 10*3/uL (130-400); RED BLOOD COUNT 4.82 10*6/uL (4.50-5.90); RED CELL DISTRI WIDTH 14.5 % (0-14.5); WHITE BLOOD COUNT 10.3 10*3/uL (4.8-10.8)
[2023-08-20 06:29] LABS: BUN 15 mg/dl (9-23); CHLORIDE 104 mmol/L (98-107); POTASSIUM 3.7 mmol/L (3.4-5.1)
[2023-08-20 08:00] VITALS: BP 155/89
[2023-08-20 12:00] VITALS: BP 156/98
[2023-08-20 16:00] VITALS: BP 156/94
[2023-08-20 20:27] VITALS: BP 130/95; BP 149/95
[2023-08-21] VITALS: BP 155/90
[2023-08-21 06:50] LABS: BASO % 0.4 % (0.0-1.0); EOS # 0.2 10*3/uL (0.0-0.4); EOS % 3.1 % (1.0-4.0); HEMATOCRIT 41.8 % (42.0-52.0); LYMPH # 2.7 10*3/uL (1.3-4.4); LYMPH % 36.9 % (27.0-41.0); MEAN CELL VOLUME 83.3 fl (80.0-94.0); MEAN CORPUSCULAR HGB 27.3 pg (27.0-31.0); MEAN CORPUSCULAR HGB CONC 32.8 g/dl (33.0-37.0); MEAN PLATELET VOLUME 9.1 fl (9.6-12.3); MONO # 0.7 10*3/uL (0.1-1.0); MONO % 8.9 % (3.0-9.0); NEUT # 3.7 10*3/uL (2.3-7.9); NEUT % 50.2 % (47.0-73.0); PLATELET COUNT AUTOMATED 243 10*3/uL (130-400); RED BLOOD COUNT 5.02 10*6/uL (4.50-5.90); RED CELL DISTRI WIDTH 14.5 % (0-14.5); WHITE BLOOD COUNT 7.4 10*3/uL (4.8-10.8)
[2023-08-21 07:16] LABS: BUN 16 mg/dl (9-23); CHLORIDE 103 mmol/L (98-107); POTASSIUM 3.5 mmol/L (3.4-5.1)
[2023-08-21 08:00] VITALS: BP 172/92
[2023-08-21 11:57] VITALS: BP 128/66
[2023-08-21 16:00] VITALS: BP 161/73
[2023-08-21 20:00] VITALS: BP 162/98
[2023-08-21] MEDS ORDERED: DALVANCE500 MG IV (20:59)
[2023-08-22] VITALS: BP 160/92
[2023-08-22 07:34] LABS: BASO % 0.6 % (0.0-1.0); EOS # 0.3 10*3/uL (0.0-0.4); EOS % 4.3 % (1.0-4.0); HEMATOCRIT 42.4 % (42.0-52.0); LYMPH # 2.2 10*3/uL (1.3-4.4); LYMPH % 33.5 % (27.0-41.0); MEAN CELL VOLUME 84.8 fl (80.0-94.0); MEAN CORPUSCULAR HGB 27.2 pg (27.0-31.0); MEAN CORPUSCULAR HGB CONC 32.1 g/dl (33.0-37.0); MEAN PLATELET VOLUME 8.6 fl (9.6-12.3); MONO # 0.5 10*3/uL (0.1-1.0); MONO % 7.3 % (3.0-9.0); NEUT # 3.5 10*3/uL (2.3-7.9); PLATELET COUNT AUTOMATED 256 10*3/uL (130-400); RED CELL DISTRI WIDTH 14.1 % (0-14.5); WHITE BLOOD COUNT 6.4 10*3/uL (4.8-10.8)
[2023-08-22] MEDS ORDERED: Acetaminophen/Hydrocodone 5 MG/325 MG TABLET PO PRN (07:57)
[2023-08-22 08:00] VITALS: BP 155/92
[2023-08-22 08:39] LABS: BUN 18 mg/dl (9-23); CHLORIDE 104 mmol/L (98-107); POTASSIUM 3.4 mmol/L (3.4-5.1)
[2023-08-22] MEDS ORDERED: DALVANCE500 MG IV (11:13)
[2023-08-22] MEDS ORDERED: HYDROCODONE-AC1 EAC1 PO (11:27)
== END 2023-08-22 15:27 | disposition home or self-care (01) | DRG 320 ==
LOC: SDC 02:21 → 4E 09:55 → SDC 13:15 → 4E 08-22 15:27
PROVIDERS: Orthopaedic Surgery; Student in an Organized Health Care Education/Training Program; ADMIT Family Medicine; ATTEND Family Medicine
PROC: 0QPH05Z Removal of External Fixation Device from Left Tibia, Open Approach (ICD-10-PCS; principal; 2023-08-18)
DX: T84.7XXA Infection and inflammatory reaction due to other internal orthopedic prosthetic devices, implants and grafts, initial encounter (principal); A41.9 Sepsis, unspecified organism; E44.0 Moderate protein-calorie malnutrition; M86.362 Chronic multifocal osteomyelitis, left tibia and fibula; I10 Essential (primary) hypertension; F17.210 Nicotine dependence, cigarettes, uncomplicated; G89.18 Other acute postprocedural pain; R65.20 Severe sepsis without septic shock; B95.62 Methicillin resistant Staphylococcus aureus infection as the cause of diseases classified elsewhere; Y83.8 Other surgical procedures as the cause of abnormal reaction of the patient, or of later complication, without mention of misadventure at the time of the procedure; S82.14 Bicondylar fracture of tibia; Z88.0 Allergy status to penicillin; Z83.3 Family history of diabetes mellitus; Y92.89 Other specified places as the place of occurrence of the external cause; Z68.28 Body mass index [BMI] 28.0-28.9, adult

== ENCOUNTER → 2023-10-03 | Outpatient (CLI) | payer OTHER ==
[~2023-10-03] MED LIST changes: +ATORVASTATIN CA40 M1 PO; +DALVANCE500 MG IV
== END | disposition home or self-care (01) ==
LOC: ORTHO 02:41
PROVIDERS: ATTEND Orthopaedic Surgery
DX: M89.8X6 Other specified disorders of bone, lower leg (principal); B95.62 Methicillin resistant Staphylococcus aureus infection as the cause of diseases classified elsewhere

== ENCOUNTER 2023-11-26 18:33 | Emergency (ER) | payer OTHER ==
[~2023-11-26] VITALS: Ht 175.2 cm; Wt 88.5 kg
[2023-11-26] MEDS ORDERED: Ketorolac Tromethamine 30 MG/ML VIAL IM ONE (19:05)
[2023-11-26] MEDS ORDERED: Motrin,Rufen800 MG PO (19:19)
== END 2023-11-26 19:26 | disposition home or self-care (01) ==
LOC: ED 18:33
DX: K40.30 Unilateral inguinal hernia, with obstruction, without gangrene, not specified as recurrent (principal); Z20.2 Contact with and (suspected) exposure to infections with a predominantly sexual mode of transmission; F17.200 Nicotine dependence, unspecified, uncomplicated; Z87.442 Personal history of urinary calculi; Z88.0 Allergy status to penicillin; Z79.899 Other long term (current) drug therapy; Z98.890 Other specified postprocedural states

== ENCOUNTER → 2024-04-20 | Outpatient (CLI) | payer OTHER | END | disposition home or self-care (01) | LOC: ORTHO 00:59 | PROVIDERS: ATTEND Orthopaedic Surgery | DX: M17.12 Unilateral primary osteoarthritis, left knee (principal); M25.762 Osteophyte, left knee; M25.462 Effusion, left knee; M25.562 Pain in left knee ==

== ENCOUNTER 2024-06-08 19:26 | Emergency (ER) | payer OTHER ==
[~2024-06-08] VITALS: Ht 175.2 cm; Wt 88.5 kg
[2024-06-08] MEDS ORDERED: MEDROL DOSEPAK4 MG PO (21:08)
[2024-06-08] MEDS ORDERED: BENZONATATE100 M1 PO (21:08)
[2024-06-08] MEDS ORDERED: IBUPROFEN 800 MG TAB PO ONE (21:45)
== END 2024-06-08 21:52 | disposition home or self-care (01) ==
LOC: ED 19:26
DX: J40 Bronchitis, not specified as acute or chronic (principal); F17.200 Nicotine dependence, unspecified, uncomplicated; Z88.0 Allergy status to penicillin; Z79.899 Other long term (current) drug therapy; Z79.82 Long term (current) use of aspirin; Z98.890 Other specified postprocedural states

== ENCOUNTER 2024-09-21 23:05 | Emergency (ER) | payer OTHER ==
[~2024-09-21 23:05] MED LIST changes: +BENZONATATE100 M1 PO; +MEDROL DOSEPAK4 MG PO
[2024-09-21] MEDS ORDERED: Doxycycline Hyclate 100 MG CAPSULE PO ONE (23:55)
[2024-09-21] MEDS ORDERED: METOPROLOL SUCCINATE XR 25 MG TAB PO ONE (23:55)
[2024-09-21] MEDS ORDERED: VIBRAMYCIN100 MG PO (23:58)
[2024-09-21] MEDS ORDERED: TOPROL XL25 MG PO (23:58)
== END 2024-09-22 00:10 | disposition home or self-care (01) ==
LOC: ED 23:05
DX: L02.416 Cutaneous abscess of left lower limb (principal); I10 Essential (primary) hypertension; F17.200 Nicotine dependence, unspecified, uncomplicated; Z91.148 Patient's other noncompliance with medication regimen for other reason; Z86.73 Personal history of transient ischemic attack (TIA), and cerebral infarction without residual deficits; Z88.0 Allergy status to penicillin; Z79.899 Other long term (current) drug therapy; Z79.82 Long term (current) use of aspirin; Z98.890 Other specified postprocedural states